=== PATIENT | male | born 1945 | race Caucasian/White ===

== ENCOUNTER 2020-05-08 05:07 | Inpatient (IN) ==
--- NOTE | 2020-04-06 16:00 | PAT Medication Instructions ---
Medication Instructions Date of Service April 06, 2020 Home Medications acetaminophen [Tylenol Extra Strength] 1,000 mg PO BID albuterol sulfate [ProAir HFA] 2 puff INHALATION 6XD PRN ascorbic acid (vitamin C) [Vitamin C] 1,000 mg PO BID aspirin [Aspir-81] 81 mg PO QPM cholecalciferol (vitamin D3) [Vitamin D3] 10 mcg PO QPM diclofenac sodium 2 g TOPICAL QID PRN doxazosin 8 mg PO QPM finasteride 5 mg PO QPM naproxen sodium [Aleve] 220 mg PO BID psyllium husk [Metamucil] 1 tbsp PO DAILY PRN triamcinolone acetonide 1 applic TOPICAL DAILY PRN vardenafil [Levitra] 10 mg PO DAILY PRN ASK your surgeon for instructions naproxen sodium [Aleve] 220 mg PO BID STOP taking 24 hours before surgery diclofenac sodium 2 g TOPICAL QID PRN triamcinolone acetonide 1 applic TOPICAL DAILY PRN vardenafil [Levitra] 10 mg PO DAILY PRN DO NOT take the morning of surgery ascorbic acid (vitamin C) [Vitamin C] 1,000 mg PO BID psyllium husk [Metamucil] 1 tbsp PO DAILY PRN Take morning of surgery With a small sip of water, OTHERWISE NOTHING TO EAT OR DRINK AFTER MIDNIGHT: acetaminophen [Tylenol Extra Strength] 1,000 mg PO BID (okay to take up to 4 hours prior to surgery if needed) albuterol sulfate [ProAir HFA] 2 puff INHALATION 6XD PRN (use if needed; please bring with you to hospital day of surgery if possible) Take evening before surgery acetaminophen [Tylenol Extra Strength] 1,000 mg PO BID albuterol sulfate [ProAir HFA] 2 puff INHALATION 6XD PRN (if needed) ascorbic acid (vitamin C) [Vitamin C] 1,000 mg PO BID aspirin [Aspir-81] 81 mg PO QPM cholecalciferol (vitamin D3) [Vitamin D3] 10 mcg PO QPM doxazosin 8 mg PO QPM finasteride 5 mg PO QPM Other Notes If you have any questions please call us at [phone] or [phone] or [phone] or [phone]
--- NOTE | 2020-04-11 09:26 | Anesthesiology Consultation ---
Date of Service April 11, 2020 Assessment & Plan (1) Encounter for pre-operative examination: Chart Review Chart Review: Acceptable Risk for Surgery (pending surgeon ordered PCP clearance 04/12 and covid testing ) and Patient seen in Pre Admission Testing Awaiting surgeon order PCP clearance scheduled 04/12 Per PAT appt 04/11/20, patient resides in [facility]. Uses precautions and wears mask. Did travel to [place] two weeks ago to [employer]- did social distance. Educated patient to follow up with surgeon's office regarding Covid testing. Educated on importance of self quarantining, social distancing and wearing mask in public both for herself and household contacts. Teaching & Discussion Pre-Anesthesia Teaching/Discussion Notes: Instructed NPO after midnight before surgery,except medications with 15 cc of water. Medication instructions provided according to the PAT guidelines. History Surgery Operation Date: 05/08/20 11:00 Proposed Procedures p Left Anterior Total Hip Arthroplasty - Rupesh Mohamud DO Height/Weight Height: 5 ft 7 in Weight: 93.5 kg Allergies Allergy/AdvReac Type Severity Reaction Status Date / Time milk Allergy Unknown USES Verified 04/04/20 14:06 LACTOSE FREE MILK MOST OF THE TIME-GI UPSET celecoxib [From Celebrex] AdvReac Intermediate Heartburn Verified 04/11/20 10:11 methylprednisolone AdvReac Intermediate GI upset Verified 04/11/20 10:11 [From Medrol] shellfish derived AdvReac Unknown SEVERE GI Verified 04/04/20 14:04 CRAMPS Medications Home Medications Medication Instructions Recorded Confirmed Last Taken acetaminophen [Tylenol Extra 1,000 mg PO BID 04/04/20 04/04/20 Unknown Strength] albuterol sulfate [ProAir HFA] 2 puff INHALATION 6XD PRN 04/04/20 04/04/20 Unknown ascorbic acid (vitamin C) [Vitamin 1,000 mg PO BID 04/04/20 04/04/20 Unknown C] aspirin [Aspir-81] 81 mg PO QPM 04/04/20 04/04/20 Unknown cholecalciferol (vitamin D3) 10 mcg PO QPM 04/04/20 04/04/20 Unknown [Vitamin D3] diclofenac sodium 2 g TOPICAL QID PRN 04/04/20 04/04/20 Unknown doxazosin 8 mg PO QPM 04/04/20 04/04/20 Unknown finasteride 5 mg PO QPM 04/04/20 04/04/20 Unknown naproxen sodium [Aleve] 220 mg PO BID 04/04/20 04/04/20 Unknown psyllium husk [Metamucil] 1 tbsp PO DAILY PRN 04/04/20 04/04/20 Unknown triamcinolone acetonide 1 applic TOPICAL DAILY PRN 04/04/20 04/04/20 Unknown vardenafil [Levitra] 10 mg PO DAILY PRN 04/04/20 04/04/20 Unknown Past Medical History Medical History Chronic back pain LOWER BACK Enlarged prostate Kidney stones No current issues Migraine HX-OCULAR TYPE?2014?-NO ISSUES SINCE Monoclonal paraproteinemia F/U DR RUSS ANNUALLY- UNDER OBSERVATION Osteoarthritis Peripheral neuropathy LEGS/FEET F/U DR MOOKIE NGUYỄN-WAS TOLD CAUSED BY ABNORMAL PROTEIN IN HIS BLOOD-MONOCLONAL PARA PROTEINEMIA Exercise / Class Metabolic Activity II 4-5 Yardwork/Stairs/Walk up hill (ONE FLIGHT OF STAIRS- NO CHEST PAIN OR SOB) Past Surgical History Surgical History H/O exploratory laparotomy REPAIR OBSTRUCTION LEFT URETER History of back surgery X 2-INCLUDES IMPLANTS L4-L5 2014 History of colonoscopy History of cystoscopy WITH STONE REMOVAL STENT History of tonsillectomy History of total hip arthroplasty RIGHT 2016 Past Anesthesia History No Hx of Anesthesia Complications and No Family Hx of Anesthesia Complications History of PONV No Hx of PONV and No Hx of Motion Sickness Social History Smoking Status: Former smoker Do You Dip or Chew Tobacco: No Smoking End Date: QUIT AGE 42 YRS Hx Alcohol Use: Yes Alcohol type: beer alcohol intake frequency: a few times a month Hx Substance Use: No Review of Systems Occ reflux - usually due to dietary intake. Patient denies chest pain, shortness of breath, dyspnea on exertion, cough, wheezing, palpitations. No hx of seizures, stroke, [place], apnea/snoring. No hx of blood clots or blood transfusions Physical Exam Vital Signs VITALS BP 130/74 P 60 TEMP 98.2 SP02 99% RESP 16 Constitutional no acute distress ENMT Mouth: no TMJ clicking Thyromental Distance: > or= 3.5 Finger Breadths (3.5) Mallampati Class: I Crowns on molars Neck neck extension not limited Respiratory normal respiratory effort; no respiratory distress Auscultation: lungs clear to auscultation bilaterally; no wheezes Cardiovascular Rate/Rhythm: regular rate and regular rhythm Heart Sounds: no murmur Vessels: no carotid bruit Musculoskeletal Spine: no pain with cervical ROM Neurologic moves all extremities Psychiatric Orientation: alert Testing Laboratory Results 04/11/20 09:44 04/11/20 09:44 PT 10.9 Seconds (9.0-12.0) 04/11/20 09:44 INR 1.0 (0.9-1.1) 04/11/20 09:44 APTT 25.6 Seconds (21.0-31.0) 04/11/20 09:44 Hemoglobin A1c 5.5 % (4.5-5.6) 04/11/20 09:44 Urine Color Yellow 04/11/20 09:44 Urine Appearance Clear (Clear) 04/11/20 09:44 Urine pH 6.5 (4.5-7.5) 04/11/20 09:44 Ur Specific [place] 1.011 (1.000-1.030) 04/11/20 09:44 Urine Protein Negative (Negative) 04/11/20 09:44 Urine Glucose (UA) Negative (Negative) 04/11/20 09:44 Urine Ketones Negative (Negative) 04/11/20 09:44 Urine Nitrite Negative (Negative) 04/11/20 09:44 Ur Leukocyte Esterase Negative (Negative) 04/11/20 09:44 Blood Type A Negative 04/11/20 09:44 Antibody Screen NEGATIVE 04/11/20 09:44 Electrocardiogram Date: 04/11/20 Findings: + SB @ (59) Chest X-Ray Date: 04/11/20 Findings: + NAD
--- NOTE | 2020-04-11 10:30 | XRay Report ---
XR chest Pre-admission PA/Lat HISTORY: Preop. COMPARISON: Chest 07/24/2016. FINDINGS: The lungs are clear. Cardiac silhouette is top normal in size. No pleural effusions. No pne umothorax. IMPRESSION: No acute process. ACT 112: Negative or not required by law. Electronically signed by: Kamran Hernandez M.D. 04/11/2020 10:28 AM
[2020-04-11 11:04] LABS: Basophils # (auto) 0.01 K/uL (0-0.2); Basophils % (auto) 0.2 %; Eosinophils # (auto) 0.11 K/uL (0-0.5); Eosinophils % (auto) 2.4 %; Hematocrit (blood only) 38.1 % (42-52); Hemoglobin 11.9 g/dL (14.0-18.0); Immature Granulocytes # (auto) 0.01 K/uL (0.00-0.02); Immature Granulocytes % (auto) 0.2 %; Lymphocytes % (auto) 36.9 %; Mean Corpuscular Hemoglobin 29.1 pg (25-34); Mean Corpuscular Hgb Conc 31.2 g/dL (32-36); Mean Corpuscular Volume 93.2 fL (80-100); Mean Platelet Volume 10.5 fL (7.4-10.4); Monocytes # (auto) 0.45 K/uL (0.11-0.59); Monocytes % (auto) 9.8 %; Neutrophils # (auto) 2.33 K/uL (1.4-6.5); Neutrophils % (auto) 50.5 %; Platelet Count 247 K/uL (130-400); RDW Coefficient of Variation 13.1 % (11.5-14.5); RDW Standard Deviation 44.5 fL (36.4-46.3); Red Blood Count 4.09 M/uL (4.7-6.1); White Blood Count 4.61 K/uL (4.8-10.8)
[2020-04-11 11:09] LABS: Estimated Average Glucose 111 mg/dl; Hemoglobin A1C 5.5 % (4.5-5.6)
[2020-04-11 11:11] LABS: Appearance Urine Clear (Clear); Bilirubin Urine Negative (Negative); Blood Urine Negative (Negative); Color Urine Yellow; Glucose Urine UA Negative (Negative); Ketones Urine Negative (Negative); Leukocyte Esterase Urine Negative (Negative); Nitrite Urine Negative (Negative); Protein Urine Negative (Negative); Specific Gravity Urine 1.011 (1.000-1.030); Urobilinogen Urine Negative (Negative); pH Urine 6.5 (4.5-7.5)
[2020-04-11 11:20] LABS: Partial Thromboplastin Ratio 0.9; Partial Thromboplastin Time 25.6 Seconds (21.0-31.0); Prothrombin Time 10.9 Seconds (9.0-12.0)
[2020-04-11 11:40] LABS: Albumin Level 3.9 gm/dl (3.4-5.0); BUN Creatinine Ratio 12.5 (10-20); Calcium 8.7 mg/dl (8.5-10.1); Creatinine Clr Calc Pharmacy 88.8 ml/min; Est GFR (African American) 102.4; Est GFR (Non-African American) 88.3; Potassium 4.3 mmol/L (3.5-5.1)
--- NOTE | 2020-04-11 14:51 | Electrocardiogram Report ---
Test Reason : Blood Pressure : / mmHG Vent. Rate : 059 BPM Atrial Rate : 059 BPM P-R Int : 152 ms QRS Dur : 102 ms QT Int : 406 ms P-R-T Axes : 082 -28 044 degrees QTc Int : 401 ms Sinus bradycardia Otherwise normal ECG When compared with ECG of 24-JUL-2016 12:41, No significant change was found Confirmed by Maximo Callaway ([id number]) on 04/11/2020 2:51:20 PM Referred By: Rupesh Mohamud Confirmed By:Maximo Callaway
--- NOTE | 2020-05-06 10:51 | History & Physical Report ---
Date of Service May 08, 2020 Assessment & Plan (1) Degenerative joint disease of left hip: I have indicated the patient for left anterior total hip replacement. The risks, benefits and complications of surgery were explained to the patient which include but not limited to infection, acute blood loss, DVT/PE, injury to nerves, vessels, bone, soft tissue, arthrofibrosis, chronic pain, failure of the prosthesis, hip dislocation, leg length discrepancy, need for additional surgery, cardiac and pulmonary events and . The patient wished to proceed with surgery and informed consent was obtained at this time. We will plan for 81mg ASA BID post-operatively for DVT prophylaxis. Upon discharge the patient will be discharged home with outpatient PT. Appropriate clearances by PCP were obtained. History of Present Illness Chief Complaint: Left hip pain/djd Primary Care Provider: Shi Guzmán The patient is a 75 year old male who presents with complaints of severe left hip pain and DJD. The patient has failed outpatient conservative treatments to this point which included NSAIDs, IA corticosteroid injection, PT and a home exercise/walking program. The patient's pain and limited function have progressed to the point where they severely hinder their activities of daily living and they no longer tolerate exercise programs. They are requesting to proceed with total hip replacement surgery. Allergies Allergy/AdvReac Type Severity Reaction Status Date / Time milk Allergy Unknown USES Verified 05/08/20 05:37 LACTOSE FREE MILK MOST OF THE TIME-GI UPSET celecoxib [From Celebrex] AdvReac Intermediate Heartburn Verified 05/08/20 05:37 methylprednisolone AdvReac Intermediate GI upset Verified 05/08/20 05:37 [From Medrol] shellfish derived AdvReac Unknown SEVERE GI Verified 05/08/20 05:37 CRAMPS Home Medications Home Medications Medication Instructions Recorded Confirmed Type acetaminophen [Tylenol Extra 1,000 mg PO BID 04/04/20 05/08/20 History Strength] albuterol sulfate [ProAir HFA] 2 puff INHALATION 6XD PRN 04/04/20 05/08/20 History ascorbic acid (vitamin C) [Vitamin 1,000 mg PO BID 04/04/20 05/08/20 History C] aspirin [Aspir-81] 81 mg PO QPM 04/04/20 05/08/20 History cholecalciferol (vitamin D3) 10 mcg PO QPM 04/04/20 05/08/20 History [Vitamin D3] diclofenac sodium 2 g TOPICAL QID PRN 04/04/20 05/08/20 History doxazosin 8 mg PO QPM 04/04/20 05/08/20 History finasteride 5 mg PO QPM 04/04/20 05/08/20 History naproxen sodium [Aleve] 220 mg PO BID 04/04/20 05/08/20 History psyllium husk [Metamucil] 1 tbsp PO DAILY PRN 04/04/20 05/08/20 History triamcinolone acetonide 1 applic TOPICAL DAILY PRN 04/04/20 05/08/20 History vardenafil [Levitra] 10 mg PO DAILY PRN 04/04/20 05/08/20 History Past Med/Surg History Medical History Chronic back pain LOWER BACK Enlarged prostate Kidney stones No current issues Migraine HX-OCULAR TYPE?2014?-NO ISSUES SINCE Monoclonal paraproteinemia F/U DR RUSS ANNUALLY- UNDER OBSERVATION Osteoarthritis Peripheral neuropathy LEGS/FEET F/U DR MOOKIE NGUYỄN-WAS TOLD CAUSED BY ABNORMAL PROTEIN IN HIS BLOOD-MONOCLONAL PARA PROTEINEMIA Surgical History H/O exploratory laparotomy REPAIR OBSTRUCTION LEFT URETER History of back surgery X 2-INCLUDES IMPLANTS L4-L5 2014 History of colonoscopy History of cystoscopy WITH STONE REMOVAL STENT History of tonsillectomy History of total hip arthroplasty RIGHT 2016 Social History Smoking Status: Former smoker Smoking End Date: QUIT AGE 42 YRS; Second Hand Exposure: No; Do You Dip or Chew Tobacco: No; Hx Alcohol Use: Yes Alcohol type: beer Hx Substance Use: No Preferred Language: Italian Communication Ability: Effective Software Implementation Project Manager Required: No Beliefs That Will Affect Care: None Current Living Situation: Spouse Other Information That Helps Us Care for You: No Feels Safe at Home: Yes Safety Concerns: Feels Safe At This Time Review of Systems Review of Systems: All systems reviewed & are unremarkable except as noted in HPI & below Constitutional: as per Subjective / HPI Physical Exam Physical Exam: LLE NVSI +EHL/FHL/TA/GS SILT grossly, +2 DP pulse, compartments soft NT, limited painful ROM of the hip, antalgic gait. Constitutional: WD/WN, vitals as above Eyes: PERRL, conjunctivae normal, anicteric sclerae ENMT: external ear and nose normal, oropharynx normal Neck: trachea midline, no thyromegaly Respiratory: normal respiratory effort, lungs clear to auscultation Cardiovascular: RRR, no murmur, no edema Gastrointestinal (Abdomen): normal bowel sounds, soft, nontender, no hepatosplenomegaly Musculoskeletal: no cyanosis or clubbing, extremities motor strength 5/5 Skin: no rashes, warm and dry Neurologic: patellar DTR's 2+ bilat, sensation intact Psychiatric: A+Ox3, euthymic affect Lymphatic: no cervical or axillary lymphadenopathy Results & Data Results & Data ([facility]) Diagnostic Findings Multiple views of the hip demonstrates severe DJD with complete loss of the joint space. +osteophytes, +sclerosis, +subchondral cysts.
[2020-05-08] MEDS ORDERED: TRANEXAMIC ACID 1,000 MG **IV Pre-op IV SCH (06:00)
[2020-05-08] MEDS ORDERED: METOCLOPRAMIDE HCL 10 MG TABLET PO SCH (06:00)
[2020-05-08] MEDS ORDERED: dexAMETHasone 4 MG TAB PO SCH (06:00)
[2020-05-08] MEDS ORDERED: CEFAZOLIN 2000MG 2,000 MG/15 ML SYR IV SCH (06:00)
[2020-05-08] MEDS ORDERED: FAMOTIDINE 20 MG TAB PO SCH (06:00)
[2020-05-08] MEDS ORDERED: GABAPENTIN 300 MG CAP PO SCH (06:00)
[2020-05-08] MEDS ORDERED: ACETAMINOPHEN 500 MG TAB PO SCH (06:00)
[2020-05-08] MEDS ORDERED: TRANEXAMIC ACID 1,000 MG **IV Intra-op IV SCH (06:00)
[2020-05-08] MEDS ORDERED: LR 500ML BOLUS, THEN 15ML/HR IV SCH (06:00)
[2020-05-08] MEDS ORDERED: ROPIVACAINE 0.5% HCL/PF 150 MG, BUPIVACAINE 0.5% MPF 30 ML, EPINEPHrine 30MG/30ML (OR U... INSTIL SCH (06:00)
[2020-05-08] MEDS ORDERED: BUPIVACAINE 0.5 % 5 MG/1 ML PF 10ML VIAL ONE (06:19)
[2020-05-08] MEDS ORDERED: ONDANSETRON INJ 2 MG/ML 2 ML VIAL IV PRN ×2 (06:38→10:46)
[2020-05-08] MEDS ORDERED: ePHEDrine sulfate 50 MG/ML AMP IV PRN (06:38)
[2020-05-08] MEDS ORDERED: fentaNYL citrate 100 MCG/2 ML VIAL IV PRN (06:38)
[2020-05-08] MEDS ORDERED: ATROPINE SULFATE 0.1 MG/ML 10ML SYR IV PRN (06:38)
--- NOTE | 2020-05-08 07:00 | History & Physical Bridge Note ---
Date of Service May 08, 2020 History & Physical Bridge Note I have examined the patient, reviewed the History & Physical and in the interval since the performance of the History & Physical I have noted the following changes of clinical significance: no changes noted
[2020-05-08] MEDS ORDERED: BACITRACIN INJ 50,000 UNIT VIAL ONE (07:06)
[2020-05-08] MEDS ORDERED: ORTHO JOINT ANESTHETIC ONE (07:06)
[2020-05-08] MEDS ORDERED: MIDAZOLAM HCL 1 MG/ML 2ML VIAL ONE ×2 (07:49→07:50)
[2020-05-08] MEDS ORDERED: fentaNYL citrate 100 MCG/2 ML VIAL ONE (07:50)
--- NOTE | 2020-05-08 09:23 | Post Operative Brief Note ---
Immediate Post Op Note v1 Date of Surgery May 08, 2020 Pre & Post Diagnosis Operation Date: 05/08/20 07:15 Pre-Op Diagnosis: Unilateral Primary Osteoarthritis, Left Hip Post-Op Diagnosis: Unilateral Primary Osteoarthritis, Left Hip I identified the patient and participated in the time-out.: Yes Procedure Operation Date: 05/08/20 07:15 Actual Procedures p Left Anterior Total Hip Arthroplasty(Left) - Rupesh Mohamud DO Surgeon Rupesh Mohamud DO Traffic Worker Jesus Boyce Estimated Blood Loss 155 Findings Consistent with Post-Op Diagnosis Specimens femoral head Complications none Disposition Disposition: Recovery Room Overlapping Procedure I was present for: the critical portions of procedure. I was immediately available: during the entire case. Back up surgeon: was not required during procedure.
--- NOTE | 2020-05-08 09:25 | Operative Report ---
Post Operative Report Pre & Post Diagnosis Operation Date: 05/08/20 07:15 Pre-Op Diagnosis: Unilateral Primary Osteoarthritis, Left Hip Post-Op Diagnosis: Unilateral Primary Osteoarthritis, Left Hip I identified the patient and participated in the time-out.: Yes Procedure Operation Date: 05/08/20 07:15 Actual Procedures p Left Anterior Total Hip Arthroplasty(Left) - Rupesh Mohamud DO Surgeon Rupesh Mohamud DO Prop Setter Jesus Boyce Estimated Blood Loss 155 Findings Consistent with Post-Op Diagnosis Specimens femoral head Disposition Disposition: Recovery Room Indications The patient is a 75-year-old male who presents with severe progressive left hip DJD who has failed outpatient conservative treatments. I indicated the patient for a anterior total hip replacement and the risks and benefits were explained in detail which include but not limited to infection, bleeding, blood clot, damage to surrounding bone, nerves, vessels, soft tissue, hip dislocation, failure of the prosthesis, leg length discrepancy, need for additional surgery and . The patient agreed to proceed with replacement of the hip and informed consent was obtained. Appropriate clearances were obtained. Description of Procedure COMPONENTS USED: [employer] hip system: Acetabulum size 56, femur size 9 standard offset, femoral head 36+4, liner 5636, acetabular screw 25 mm x 1. DESCRIPTION OF PROCEDURE: Following satisfactory spinal anesthesia, the patient was placed supine on the OR table. The right leg was placed in the well leg garzon and the left leg in the traction device. The left leg was prepared with ChloraPrep and draped sterilely. A surgical timeout was performed, patient identified and site trista verified. Appropriate antibiotics were given. A standard anterior approach in the interval between the sartorius and tensor muscles was performed. Dissection was carried down through subcutaneous tissues. Electrocautery was utilized for hemostasis. Circumflex femoral vessels were identified, tied and ligated. The anterior capsular fat pad was removed and the capsulotomy was performed revealing the arthritic femoral neck and head. A femoral neck cut was made with reciprocating saw and the bone fragments removed. The acetabular self-retraining retractor was placed. Acetabular reaming was completed under fluoroscopic guidance, a 56 shell was impacted into an anatomic position and secured with a dome screw. Local anesthetic was placed and following irrigation, the polyethylene liner was placed. The femur was placed into position of external rotation, extension and adduction. Femoral canal was prepared up to the size 9 standard offset. Trial reduction with a 36+4 neck length head showed good soft tissue tension, leg lengths restored, and good fit and fill of the proximal canal using fluoroscopic landmarks. The hip was dislocated. The trial component was removed. The final implant was placed. The hip was irrigated with sterile saline solution and reduced. A Betadine soak was performed. After 3 minutes, the hip was once more irrigated with copious sterile saline solution with bacitracin. Kathleen-incisional soft tissue was injected utilizing [place] [employer]omix which includes a combination of Ropivicaine 0.5% 150mg, Bupivicaine 0.5%/Epinephrine 1:200,000 30ml, Toradol 30mg, Dexamethasone 4mg, Ketamine 10mg, Clonidine 100mcg and NSS 30ml solution. The capsule was then closed with 1-0 Vicryl interrupted figure of eight sutures. The fascia was closed with a running suture of #1 Vicryl, the subcutaneous tissues with 2-0 Vicryl and the skin with a running subcuticular stitch of 3-0 V-Loc. Dermabond prineo and a dry dressing were applied. The patient tolerated the procedure well and was transported to PACU in stable condition. Due to the complex nature of the procedure, the entire surgery was performed with the operational assistance of Jesus Boyce PA-C. The production administrative assistant, under direct supervision, was involved in the actual performance of all aspects of the surgical procedure including patient positioning, hemostasis, tissue retraction, instrument management and wound closure. I attest to the content of the Intraoperative Record and any orders documented therein. Any exceptions are noted below.
--- NOTE | 2020-05-08 09:40 | Fluoroscopy Report ---
FL hip LT 1V CLINICAL HISTORY: LT ANTERIOR TOTAL COMPARISON STUDY: FLUOROSCOPY TIME: 39 seconds. NUMBER OF FLUOROSCOPIC IMAGES: 2 FINDINGS: 2 intraoperative fluoroscopic spot images demonstrating a total left hip arthroplasty. Ther e is no dislocation. IMPRESSION: Intraoperative fluoroscopic spot images demonstrating a total left hip arthroplasty. ACT 112: Negative or not required by law. Electronically signed by: Jesus Carrillo M.D. 05/08/2020 9:39 AM
--- NOTE | 2020-05-08 10:21 | Anesthesiology Progress Note ---
Date of Service May 08, 2020 Anesthesia Post Procedure Vital Signs Vital Signs: Temp Pulse Pulse Resp BP BP Pulse Ox 05/08/20 10:10 62 14 131/66 98 05/08/20 10:00 59 L 14 126/68 100 05/08/20 09:51 97.0 F L 65 12 113/64 99 05/08/20 06:25 65 18 146/78 H 98 05/08/20 05:45 98.2 F 63 16 143/82 H 97 Transfer of Care Handoff Completed per policy Notes Mental Status: alert / awake / arousable and participated in evaluation Patient Amnestic to Procedure: Yes Nausea / Vomiting: adequately controlled Pain: adequately controlled Airway Patency, RR, SpO2: stable & adequate BP & HR: stable & adequate Hydration State: stable & adequate Neuraxial Anesthesia: was administered and sensory block is resolving Anesthetic Complications: no major complications apparent and Pt Satisfied with anesthetic care
--- NOTE | 2020-05-08 10:33 | XRay Report ---
XR hip 1V LT w pelvis CLINICAL HISTORY: Postop examination COMPARISON: 08/25/2016 DISCUSSION: A total right hip arthroplasty is again evident. Now evident is a total left hip arthropl asty. There is no dislocation. The acetabular femoral components appear well seated. There is gas pre sent within the soft tissues consistent with recent surgery IMPRESSION: Postsurgical changes of a total left hip arthroplasty. ACT 112: Negative or not required by law. Electronically signed by: Jesus Carrillo M.D. 05/08/2020 10:32 AM
[2020-05-08] MEDS ORDERED: ONDANSETRON INJ 2 MG/ML 2 ML VIAL ONE (10:38)
[2020-05-08] MEDS ORDERED: PROPOFOL IV EMULSION 10 MG/ML 20 ML VIAL IV ONE (10:38)
[2020-05-08] MEDS ORDERED: LIDOCAINE HCL 2% 2 ML VIAL/AMP(20MG/ML) INFIL ONE (10:38)
[2020-05-08] MEDS ORDERED: HYDROmorphone INJ 0.5 MG/0.5 ML SYR IV PRN (10:46)
[2020-05-08] MEDS ORDERED: MAGNESIUM HYDROXIDE SUSP 30 ML UDC PO PRN (10:46)
[2020-05-08] MEDS ORDERED: NALOXONE HCL 0.4 MG/1 ML VIAL/CARP IV PRN (10:46)
[2020-05-08] MEDS ORDERED: bisacodyL 10 MG SUPP PR PRN (10:46)
[2020-05-08] MEDS ORDERED: METOCLOPRAMIDE HCL INJ 5 MG/ML 2 ML VIAL IV PRN (10:46)
[2020-05-08] MEDS ORDERED: ALBUTEROL HFA 8 GM INHALER INH PRN (11:13)
[2020-05-08] MEDS: KETOROLAC TROMETHAMINE 15 MG/ML VIAL IV SCH ×2 (11:56→17:26)
[2020-05-08] MEDS: SODIUM CHLORIDE 0.9% 1000ML 1,000 ML IV SCH (11:57)
[2020-05-08] MEDS: ACETAMINOPHEN 500 MG TAB PO SCH ×2 (13:27→21:16)
[2020-05-08] MEDS: OXYCODONE HCL IR 5 MG TAB (IMMEDIATE RELEASE) PO PRN ×3 (13:27→21:16)
[2020-05-08] MEDS: CEFAZOLIN 2000MG 2,000 MG/15 ML SYR IV SCH (17:27)
--- NOTE | 2020-05-08 19:51 | Orthopedic Progress Note ---
Date of Service May 08, 2020 Assessment & Plan (1) Degenerative joint disease of left hip: s/p L Anterior BEVERLY -Ancef x 24 -DVT ppx: SCDs, TEDs, 81mg ASA BID -WBAT LLE -PT/OT -PO XR demonstrates a well aligned well fixed total hip prothesis without fracture/dislocation -am labs -DC planning Admission and Anticipated Discharge Date Admission Date: May 08, 2020 Subjective Post Operative Progress Note Patient seen sitting in chair at bedside, comfortable, denies complaints, pain well controlled, no acute issues. Review of Systems Review of Systems: All systems reviewed & are unremarkable except as noted in HPI & below Constitutional: as per Subjective / HPI Physical Exam Physical Exam: LLE NVSI +EHL/FHL/TA/GS SILT grossly, +2 DP pulse, compartments soft NT, dressing cdi. Constitutional: WD/WN, vitals as above Results & Data ([facility]) Vital Signs (Past 12 Hours) Vital Signs Temp Pulse Pulse Resp BP Pulse Ox 05/08/20 19:22 36.4 C L 59 L 17 135/72 97 05/08/20 15:40 36.3 C L 75 17 112/57 L 99 05/08/20 14:03 66 16 116/63 98 05/08/20 12:42 67 16 144/76 H 97 05/08/20 12:01 65 16 148/76 H 100 05/08/20 11:20 56 L 18 140/87 98 05/08/20 10:50 36.3 C L 64 16 138/74 98 05/08/20 10:30 36.4 C L 57 L 14 125/72 95 05/08/20 10:20 58 L 14 128/70 97 05/08/20 10:10 62 14 131/66 98 05/08/20 10:00 59 L 14 126/68 100 05/08/20 09:51 36.1 C L 65 12 113/64 99
[2020-05-08] MEDS: DOCUSATE SODIUM 100 MG CAP PO SCH (20:12)
[2020-05-08] MEDS ORDERED: SENNA 8.6 MG TAB PO SCH (21:00)
[2020-05-08] MEDS ORDERED: DOXAZosin MESYLATE 4 MG TAB PO SCH (21:00)
[2020-05-08] MEDS ORDERED: FINASTERIDE 5 MG TAB PO SCH (21:00)
[2020-05-09] MEDS: CEFAZOLIN 2000MG 2,000 MG/15 ML SYR IV SCH (00:21)
[2020-05-09] MEDS: KETOROLAC TROMETHAMINE 15 MG/ML VIAL IV SCH ×2 (00:21→06:25)
[2020-05-09] MEDS: SODIUM CHLORIDE 0.9% 1000ML 1,000 ML IV SCH (00:43)
[2020-05-09] MEDS: ACETAMINOPHEN 500 MG TAB PO SCH ×2 (06:18→14:00)
[2020-05-09 06:21] LABS: Hematocrit (blood only) 32.7 % (42-52); Hemoglobin 10.4 g/dL (14.0-18.0); Immature Granulocytes # (auto) 0.02 K/uL (0.00-0.02); Immature Granulocytes % (auto) 0.2 %; Lymphocytes # (auto) 1.86 K/uL (1.2-3.4); Lymphocytes % (auto) 17.1 %; Mean Corpuscular Hemoglobin 28.9 pg (25-34); Mean Corpuscular Hgb Conc 31.8 g/dL (32-36); Mean Corpuscular Volume 90.8 fL (80-100); Mean Platelet Volume 10.1 fL (7.4-10.4); Monocytes # (auto) 0.59 K/uL (0.11-0.59); Monocytes % (auto) 5.4 %; Neutrophils % (auto) 77.3 %; Platelet Count 214 K/uL (130-400); RDW Coefficient of Variation 12.9 % (11.5-14.5); RDW Standard Deviation 43.1 fL (36.4-46.3); White Blood Count 10.87 K/uL (4.8-10.8)
[2020-05-09 06:58] LABS: Est GFR (African American) 85.1; Potassium 4.2 mmol/L (3.5-5.1)
[2020-05-09 06:59] LABS: BUN Creatinine Ratio 12.6 (10-20); Calcium 8.4 mg/dl (8.5-10.1); Creatinine Clr Calc Pharmacy 70.7 ml/min; Est GFR (Non-African American) 73.4
[2020-05-09] MEDS: DOCUSATE SODIUM 100 MG CAP PO SCH (08:58)
[2020-05-09] MEDS ORDERED: MULTIVITAMIN TAB PO SCH (09:00)
[2020-05-09] MEDS ORDERED: ASPIRIN 81 MG ECTAB PO SCH (09:00)
--- NOTE | 2020-05-09 09:38 | Orthopedic Progress Note ---
Date of Service May 09, 2020 Assessment & Plan (1) Degenerative joint disease of left hip: s/p L Anterior BEVERLY POD#1 -Ancef x 24 -DVT ppx: SCDs, TEDs, 81mg ASA BID -WBAT LLE -PT/OT -PO XR demonstrates a well aligned well fixed total hip prothesis without fracture/dislocation -am labs - as above, hgb 10.4 -DC planning - home with OP PT Admission and Anticipated Discharge Date Admission Date: May 08, 2020 Subjective Post Operative Progress Note Patient seen sitting in chair at bedside, comfortable, denies complaints, pain well controlled, no acute issues. Reports not sleeping overnight. Denies F/C/N/V/SOB/CP. Review of Systems Review of Systems: All systems reviewed & are unremarkable except as noted in HPI & below Constitutional: as per Subjective / HPI Physical Exam Physical Exam: LLE NVSI +EHL/FHL/TA/GS SILT grossly, +2 DP pulse, compartments soft NT, dressing cdi. Constitutional: WD/WN, vitals as above Results & Data ([facility]) Vital Signs (Past 12 Hours) Vital Signs Temp Pulse Pulse Resp BP BP Pulse Ox 05/09/20 08:19 36.6 C 55 L 18 145/66 H 100 05/09/20 03:51 36.5 C 61 16 125/67 98 05/08/20 23:05 36.6 C 60 18 120/67 97 Laboratory Results 05/09/20 05/09/20 05/09/20 Range/Units 05:32 05:32 05:32 WBC 10.87 H (4.8-10.8) K/uL RBC 3.60 L (4.7-6.1) M/uL Hgb 10.4 L (14.0-18.0) g/dL Hct 32.7 L (42-52) % MCV 90.8 (80-100) fL MCH 28.9 (25-34) pg MCHC 31.8 L (32-36) g/dL RDW Std Deviation 43.1 (36.4-46.3) fL RDW Coeff of Monty 12.9 (11.5-14.5) % Plt Count 214 (130-400) K/uL MPV 10.1 (7.4-10.4) fL Immature Gran % (Auto) 0.2 % Neut % (Auto) 77.3 % Lymph % (Auto) 17.1 % Kimball % (Auto) 5.4 % Eos % (Auto) 0.0 % Baso % (Auto) 0.0 % Neut # (Auto) 8.40 H (1.4-6.5) K/uL Lymph # (Auto) 1.86 (1.2-3.4) K/uL Kimball # (Auto) 0.59 (0.11-0.59) K/uL Eos # (Auto) 0.00 (0-0.5) K/uL Baso # (Auto) 0.00 (0-0.2) K/uL Immature Gran # (Auto) 0.02 (0.00-0.02) K/uL Sodium 140 (136-145) mmol/L Potassium 4.2 (3.5-5.1) mmol/L Chloride 107 (98-107) mmol/L Carbon Dioxide 28 (21-32) mmol/L Anion Gap 5.0 (3-11) BUN 13 (7-18) mg/dl Creatinine 1.01 (0.6-1.4) mg/dl Est Cr Clr Drug Dosing 70.7 ml/min Est GFR ( Amer) 85.1 Est GFR (Non-Af Amer) 73.4 BUN/Creatinine Ratio 12.6 (10-20) Glucose 130 H (70-99) mg/dl Calcium 8.4 L (8.5-10.1) mg/dl Hepatitis C Ab Screen Pending
[2020-05-09] MEDS: OXYCODONE HCL IR 5 MG TAB (IMMEDIATE RELEASE) PO PRN (12:39)
--- NOTE | 2020-05-09 14:26 | Anesthesiology Progress Note ---
Date of Service May 09, 2020 Anesthesia Post Procedure Vital Signs Vital Signs: Temp Pulse Pulse Resp BP BP Pulse Ox 05/09/20 08:19 97.9 F 55 L 18 145/66 H 100 05/09/20 03:51 97.7 F 61 16 125/67 98 05/08/20 23:05 97.9 F 60 18 120/67 97 05/08/20 19:22 97.5 F L 59 L 17 135/72 97 05/08/20 15:40 97.3 F L 75 17 112/57 L 99 Transfer of Care Handoff Completed per policy Notes Mental Status: alert / awake / arousable and participated in evaluation Patient Amnestic to Procedure: Yes Nausea / Vomiting: adequately controlled Pain: adequately controlled Airway Patency, RR, SpO2: stable & adequate BP & HR: stable & adequate Hydration State: stable & adequate Neuraxial Anesthesia: was administered and sensory block resolved Anesthetic Complications: no major complications apparent and Pt Satisfied with anesthetic care Notes: The patient stated that he had a hard time sleeping due to medications that he received. I reassured the patient that the cause of his insomnia was unlikely anesthesia related. The patient was otherwise happy with his care.
--- NOTE | 2020-05-09 15:42 | Discharge Summary ---
Date of Service May 09, 2020 Admission HPI Per Admitting Provider The patient is a 75 year old male who presents with complaints of severe left hip pain and DJD. The patient has failed outpatient conservative treatments to this point which included NSAIDs, IA corticosteroid injection, PT and a home exercise/walking program. The patient's pain and limited function have progressed to the point where they severely hinder their activities of daily living and they no longer tolerate exercise programs. They are requesting to proceed with total hip replacement surgery. Principal Diagnosis Left anterior total hip replacement -Left hip DJD Discharge Exam LLE NVSI +EHL/FHL/TA/GS SILT grossly, +2 DP pulse, compartments soft NT, dressing cdi. Constitutional WD/WN, vitals as above Discharge Data Allergies Allergy/AdvReac Type Severity Reaction Status Date / Time milk Allergy Unknown USES Verified 05/08/20 05:37 LACTOSE FREE MILK MOST OF THE TIME-GI UPSET celecoxib [From Celebrex] AdvReac Intermediate Heartburn Verified 05/08/20 05:37 methylprednisolone AdvReac Intermediate GI upset Verified 05/08/20 05:37 [From Medrol] shellfish derived AdvReac Unknown SEVERE GI Verified 05/08/20 05:37 CRAMPS Consultations 05/09/20 08:00 Consult Case Management - Discharge Planning Routine Procedures Performed Operation Date: 05/08/20 07:15 Actual Procedures p Left Anterior Total Hip Arthroplasty(Left) - Rupesh Mohamud DO Ordered Studies 05/08/20 09:35 FL fluoroscopy <1hr Routine FL hip LT 1V Routine Hospital Course (1) Degenerative joint disease of left hip: The patient is a 75 -year-old male who presents with long standing history of severe left hip DJD and failed outpatient conservative treatments. The patient's symptoms have progressed to the point where it has been difficult to perform even normal activities of daily living. I indicated the patient for a left anterior total hip arthroplasty, the risks, benefits and complications of the procedure include but not limited to infection, bleeding, damage to bone, nerves, vessels, surrounding soft tissue, may develop blood clots, loss of function, leg length discrepancy, dislocation, failure of the components, loosening of the components, the need for additional surgery and . The patient wished to proceed with surgery at this time and informed consent was obtained. Hospital Course: On 05/08/20 the patient was taken to the operating room, adequate anesthesia administered and underwent a left anterior total hip arthroplasty. The patient tolerated the procedure well and was taken to the PACU in stable condition. Post-operatively the patient was started on a DVT ppx medication and given appropriate IV antibiotics. Consults were placed to physical therapy, occupational therapy and case management. On POD#1, the patient did well overnight and their pain was well controlled. Labs were drawn and the Hgb was 10.4. The patient progressed well with PT. Dressings were changed at this time and the incision was clean, dry and intact. The patients hospital stay was relatively uneventful and they were deemed stable by the orthopedic team and consultants to be discharged home with OP PT on 05/09/20. Discharge Instructions: Upon discharge the patient may weight bear as tolerates through their operative extremity. They were instructed to keep the incision clean and dry at all times. The patient may shower but should not submerge the incision, avoid bathing, pools and hot tubes. The patient was given a script for pain medication and should take as instructed. The patient was given a script for DVT ppx 81mg ASA BID and should take as directed. The patient was instructed to not drive or travel for long distances until cleared to do so. If the patient develops any symptoms of fevers, chills, nausea, vomiting, increased redness, swelling, pain or drainage from the surgical site, they should notify the office and/or proceed to the nearest emergency room. The patient should follow up in 10-14 days after surgery for their routine post-operative follow-up appointment and should call the office to confirm the date and time. s/p L Anterior BEVERLY POD#1 -Ancef x 24 -DVT ppx: SCDs, TEDs, 81mg ASA BID -WBAT LLE -PT/OT -PO XR demonstrates a well aligned well fixed total hip prothesis without fracture/dislocation -am labs - as above, hgb 10.4 -DC planning - home with OP PT Total Time Total Time Spent Total Time Spent (In Minutes): 30 minutes Discharge Plan Discharge Items Patient Disposition: Home - Self-Care Reason For Visit: Unilateral Primary Osteoarthritis, Left Hip Discharge Diagnosis: Left anterior total hip replacement Condition on Discharge: Good Activity: Per Instructions section Lifting: Wait until after follow-up appointment Bathing: Keep incision dry Bathing Comment: No bathing, pools or hot tubs Sexual Activity: Wait until after follow-up appointment Exercise/Sports: Wait until after follow-up appointment Driving/Machine Use: No driving Weightbearing: Full weightbearing Non-emergency contact: Primary Care Provider and Surgeon Call non-emergency contact if: you have any medication questions, your symptoms worsen, your pain is not controlled, your pain is worsening, your pain is unusual for you, your pain is concerning for you, you have a fever, your temperature is above 101, your wound has increased redness, your wound has increased drainage and your wound pain has increased Follow-up/Referrals: Trish Roberts MD [Primary Care Provider] - Diet: Regular Addtl Attending Provider Instructions: ACTIVITY RECOMMENDATIONS: SELF CARE INSTRUCTIONS AFTER TOTAL HIP REPLACEMENT : Direct Anterior Approach Until the incision and soft tissues around your hip have healed, there is a possibility that the hip prosthesis could dislocate. A. Hip flexion ( Up & Down out of chair or steps ) may be difficult. This is normal. B. Numbness in front of the thigh is also normal for a few weeks. C. Use hand rails when walking on stairs. D. Wear low heeled shoes with non-slip soles. E. Be sure that your floors are free of things that could trip you - throw rugs, electrical cords, small objects. Avoid wet and waxed floors, especially with crutches and canes. F. Try to walk several times a day with rest periods between. G. Continue with all the exercises taught to you in the hospital. Again, make walking a part of your daily routine. SPECIAL CARE INSTRUCTIONS: VERY IMPORTANT TO READ AND REVIEW A. You may still be at risk for phlebitis and blood clots. 1. Wear surgical stockings (SUZI hose) for 2 weeks after surgery to improve circulation and reduce swelling. 2. Take Aspirin 81mg twice daily for 4 weeks or as directed by your doctor. This is your blood thinner. 3. High risk patients may be prescribed a stronger blood thinner if necessary. 4. If you are on Coumadin normally, your family doctor/records management assistant should monitor your blood work. Expect a phone call the day of or the day after bloodwork is drawn to adjust your dosage. B. You must take antibiotics before having dental work, bladder, bowel and other surgery. Your doctor will provide you with a permanent card to carry describing precautions. C. Call [facility] if you have a fever, redness or swelling around the incision, cloudy drainage from incision, or sudden increase in pain in your hip, not relieved by your regular pain medication. D. Please call the office at if you have any concerns or questions about your operation or recovery. * YOU MAY SHOWER, NO TUB BATHS UNTIL CLEARED BY YOUR DOCTOR. - Keep an extra close eye on the top portion of your incision. Be sure to keep clean & dry. * WEAR SUZI HOSE 20 HOURS PER DAY FOR 2 WEEKS. * YOU MAY PROGRESS FROM A WALKER, TO A CANE, TO INDEPENDENT AT YOUR OWN PACE. * MOST PATIENTS WILL HAVE HOME NURSING FOR THERAPY. IF YOU DECIDE TO DO OUTPATIENT PHYSICAL THERAPY, PLEASE SCHEDULE THIS 3 TIMES PER WEEK. * DERMABOND Prineo- This is a mesh tape dressing that is covered with glue. It should remain in place until the incision is properly healed, usually 10-14 days. This dressing is designed to naturally slough off. You may trim the excess mesh tape as it peels off. Incision may be briefly wet in a shower. Dry immediately by blotting with a clean, dry towel. Do not bath or swim until instructed by your doctor. Do not scratch, rub, or pick at the dressing. Do not apply any topical ointments or lotions until dressing is completely removed and/or instructed by your doctor. There may be a small piece of suture material at one end of your incision. Do not pull or trim this. If it is bothersome or catching on clothing, you may cover it with a band-aid. FOLLOW UP VISIT: If appointment is not already scheduled: Please call [facility] to make a follow-up appointment for 2 weeks after your surgery at . Pending Studies at Discharge: No Stand-Alone Forms: [employer], Opioid Pain Management, Smoking Cessation Medications and DC Order Prescriptions: New aspirin 81 mg Tablet,Delayed Release (Dr/Ec) 81 mg PO BID Qty: 56 RF: 0 acetaminophen 500 mg Tablet 1,000 mg PO Q8 PRN (Reason: pain/fevers) Qty: 90 RF: 0 oxycodone 5 mg Tablet 5 mg PO Q6H MDD 4 PRN (Reason: pain) Qty: 30 RF: 0 sennosides [Senokot] 8.6 mg Tablet 17.2 mg PO HS PRN (Reason: constipation) Qty: 28 RF: 0 Continued ascorbic acid (vitamin C) [Vitamin C] 1,000 mg Tablet 1,000 mg PO BID RF: 0 doxazosin 8 mg Tablet 8 mg PO QPM RF: 0 finasteride 5 mg Tablet 5 mg PO QPM RF: 0 cholecalciferol (vitamin D3) [Vitamin D3] 10 mcg (400 unit) Capsule 10 mcg PO QPM RF: 0 diclofenac sodium 1 % Gel 2 g TOPICAL QID PRN (Reason: Pain) RF: 0 triamcinolone acetonide 0.025 % Lotion 1 applic TOPICAL DAILY PRN (Reason: Rash) RF: 0 Metamucil 3.4 gram/5.4 gram Powder 1 tbsp PO DAILY PRN (Reason: Constipation) RF: 0 albuterol sulfate [ProAir HFA] 90 mcg/actuation Hfa Aerosol Inhaler 2 puff INHALATION 6XD PRN (Reason: Wheezing) RF: 0 vardenafil [Levitra] 10 mg Tablet 10 mg PO DAILY PRN (Reason: Erectile Dysfunction) RF: 0 Discontinued acetaminophen [Tylenol Extra Strength] 500 mg Tablet 1,000 mg PO BID RF: 0 naproxen sodium [Aleve] 220 mg Capsule 220 mg PO BID RF: 0 aspirin [Aspir-81] 81 mg Tablet,Delayed Release (Dr/Ec) 81 mg PO QPM RF: 0 Discharge Orders: Discharge Order (Routine); Ordered 05/09/20 Ordered By: Rupesh Mccabe/Other Patient Handouts: Preventing Deep Vein Thrombosis Admission Data Admit Date/Time: 05/08/20 09:58 Attending Provider: Rupesh Mohamud Admit Provider: Rupesh Mohamud Primary Care Provider: Trish Roberts Other Providers: [facility],Home [facility] Other Interventions: Discharge Summary Assessment (RN) Last Done: 05/09/20 09:30
== END 2020-05-09 16:39 | disposition home health service (06) | DRG 470 ==
LOC: ASU 05:07 → 3E 09:58